=== PATIENT | male | born 1960 | race Caucasian/White ===

== ENCOUNTER → 2018-01-13 | Outpatient (CLI) | payer BC ==
[~2018-01-13] VITALS: Ht 188.1 cm; Wt 112.3 kg
[~2018-01-13] MED LIST: ANTIVERT 12.512.5 MG PO; ASPIRIN 81M81 MG/TA2 PO; BACTRIM DS 8001 TAB PO; CEPHALEXIN500 M1 PO; CLARITIN 1010 MG/TAB PO; GLUCOPHAGE500 MG/TAB PO; PRINIVIL10 MG PO; ZOCOR 40MG40 MG PO
[2018-01-13 06:29] VITALS: BP 119/72; PULSE 59
[2018-01-13 07:39] VITALS: BP 113/69; PULSE 63
[2018-01-13 07:45] VITALS: BP 139/81; PULSE 92
[2018-01-13 07:46] VITALS: BP 137/90; PULSE 82
[2018-01-13 07:48] VITALS: BP 151/83; PULSE 86
[2018-01-13 07:49] VITALS: BP 150/84; PULSE 79
== END ==
LOC: COL.CARD 06:11
DX: R06.00 Dyspnea, unspecified (principal); R06.02 Shortness of breath
CPT/HCPCS: A9502; J2785

== ENCOUNTER → 2018-02-11 | Outpatient (CLI) | payer BC | LOC: COL.CARD 08:19 | DX: Z01.89 Encounter for other specified special examinations (principal) ==

== ENCOUNTER → 2018-03-18 | Outpatient (CLI) | payer BC | LOC: COL.RAD 08:12 | DX: R91.8 Other nonspecific abnormal finding of lung field (principal); I70.0 Atherosclerosis of aorta; M46.84 Other specified inflammatory spondylopathies, thoracic region | CPT/HCPCS: Q9967 ==

== ENCOUNTER 2020-11-22 07:17 | Outpatient (CLI) | payer BC ==
[~2020-11-22] VITALS: Ht 188.3 cm; Wt 100.1 kg
[2020-11-22] MEDS ORDERED: TOPROL XL 25MG25 MG PO (07:52)
[2020-11-22] MEDS ORDERED: CRESTOR20 MG PO (07:52)
[2020-11-22] MEDS ORDERED: EPA FISH OIL1 SGL PO (07:53)
[2020-11-22 08:09] LABS: HEMOGLOBIN 14.4 g/dl (13.5-18.0); MEAN CELL VOLUME 92 fl (80.0-100.0); MEAN CORPUSCULAR HEMOGLOBIN 31 pg (27.0-31.0); MEAN CORPUSCULAR HGB CONC 34 g/dl (33.0-37.0); MEAN PLATELET VOLUME 9.7 fl (7.4-10.4); PLATELET COUNT 161 K/mm3 (130-400); RED BLOOD COUNT 4.69 M/mm3 (4.20-5.60); REDCELL DISTRIBUTION WIDTH-CV 13.5 % (11.5-14.5)
[2020-11-22 08:14] LABS: PROTHROMBIN TIME 11.1 SECONDS (9.7-12.8)
[2020-11-22 08:17] LABS: CALCIUM 9.6 mg/dL (8.4-10.2); CREATININE, serum 0.85 (0.66-1.25); POTASSIUM 4.7 mmol/L (3.4-5.0)
[2020-11-22 08:21] VITALS: BP 118/69; PULSE 59; TEMP 97.8
[2020-11-22 10:03] VITALS: BP 124/73; PULSE 53
[2020-11-22 10:15] VITALS: BP 99/72; PULSE 56
[2020-11-22 10:30] VITALS: BP 110/75; PULSE 51
[2020-11-22 10:45] VITALS: BP 124/84; PULSE 52
--- NOTE | 2020-11-22 11:35 | NUR ---
Pt assisted out by wheelchair to 's car. He has tolerated PO well. Gait steady in room. Pt expressed understanding of DC instructions. IV DC'd with catheter intact.
--- NOTE | 2020-11-22 11:37 | NUR ---
Pt was sent with note written by Dr. Raymond releasing him to return to work.
== END 2020-11-22 11:40 | disposition home or self-care (01) ==
LOC: COL.RAD 07:17
PROVIDERS: Internal Medicine Cardiovascular Disease
DX: I08.0 Rheumatic disorders of both mitral and aortic valves (principal)
CPT/HCPCS: J2704

== ENCOUNTER 2024-05-09 08:16 | Day surgery (SDC) | payer BC ==
[~2024-05-09] VITALS: Ht 188 cm; Wt 100.0 kg
[2024-05-09] VITALS (7 sets, daily range): BP systolic 86–103; BP diastolic 56–63; PULSE 55–66; TEMP 97.6
[~2024-05-09 08:16] MED LIST changes: +CRESTOR20 MG PO; +EPA FISH OIL1 SGL PO; +LR 1,000 ML IV SCH; +TOPROL XL 25MG25 MG PO
[2024-05-09] MEDS ORDERED: NS Flush 10 ML SYRINGE BID ICA SCH (09:00)
[2024-05-09] MEDS ORDERED: 1/2 NS 1,000 ML IV SCH (09:00)
[2024-05-09] MEDS ORDERED: NS Flush 10 ML SYRINGE PRN ICA (09:00)
[2024-05-09] MEDS ORDERED: MASON NATURAL1200 MG PO (09:20)
[2024-05-09] MEDS ORDERED: [UNRECOGNIZED DRUG - CODE] PO (09:21)
[2024-05-09] MEDS ORDERED: ADVIL PM 38 MG-1 TAB PO (09:21)
[2024-05-09 09:32] LABS: BASO # 0.1 K/mm3 (0.0-0.2); BASO % 1.2 % (0.0-2.0); EOS # 0.1 K/mm3 (0.0-0.7); EOS % 2.7 % (0.0-4.0); GRAN # 1.8 K/mm3 (1.4-6.5); GRAN % 45.6 % (42.2-75.2); HEMOGLOBIN 14.2 g/dl (13.5-18.0); LYMPH # 1.6 K/mm3 (1.2-3.4); LYMPH % 40.6 % (20.0-51.0); MEAN CELL VOLUME 91 fl (80.0-100.0); MEAN CORPUSCULAR HEMOGLOBIN 30 pg (27-31); MEAN CORPUSCULAR HGB CONC 33 g/dl (33.0-37.0); MONO # 0.4 K/mm3 (0.1-0.6); MONO % 9.9 % (1.7-9.3); PLATELET COUNT 154 K/mm3 (130-400); RED BLOOD COUNT 4.73 M/mm3 (4.20-5.60); REDCELL DISTRIBUTION WIDTH-CV 13.1 % (11.5-14.5)
[2024-05-09 09:38] LABS: PROTHROMBIN TIME 11.4 SECONDS (9.7-12.8)
[2024-05-09 09:53] LABS: CALCIUM 9.1 mg/dL (8.4-10.2); CREATININE, serum 0.95 mg/dL (0.72-1.25); POTASSIUM 4.6 mEq/L (3.5-4.5)
[2024-05-09] MEDS ORDERED: Glycopyrrolate 0.2 MG/ML 1 ML VIAL ONE (10:22)
--- NOTE | 2024-05-09 11:35 | NUR ---
Please see moderate sedation flowsheet and anesthesia flowsheet for record of VICTOR M with Dr. Raymond. Pt is awake and alert now after VICTOR M. BS report and care handed off to Placido CAMPBELL.
--- NOTE | 2024-05-09 12:50 | NUR ---
DC instructions reviewed with pt and family, all express understanding. Pt alert, oriented. Free of complaints. He has had 2 cups of coffee and cup of water. Denied desire for food prior to DC. Swallowing without issue. He is steady on feet to restroom. No c/o dizziness with activity. He is assisted out to family's car by wheelchair after dressing. Belongings and meds sent with pt.
== END 2024-05-09 12:50 | disposition home or self-care (01) ==
LOC: COL.CAR 08:16
PROVIDERS: Internal Medicine Cardiovascular Disease
DX: I35.0 Nonrheumatic aortic (valve) stenosis (principal); Q23.1 Congenital insufficiency of aortic valve; I08.0 Rheumatic disorders of both mitral and aortic valves; I25.10 Atherosclerotic heart disease of native coronary artery without angina pectoris; I10 Essential (primary) hypertension; E78.2 Mixed hyperlipidemia; Z79.899 Other long term (current) drug therapy
CPT/HCPCS: J2704; J7120